=== PATIENT | female | born 1985 ===

== ENCOUNTER 2020-05-07 05:45 | Day surgery (SDC) | payer OTHER ==
[~2020-05-07 05:45] MED LIST: DESCOVY 200-251 EACH PO; TIVICAY50 MG PO
[2020-05-07] MEDS ORDERED: RECTICARE30 GM TOP (09:06)
[2020-05-07] MEDS ORDERED: ULTRAM50 MG PO (09:06)
[2020-05-07] MEDS ORDERED: KETO10TA2 PO (09:06)
== END 2020-05-07 12:50 | disposition home or self-care (01) ==
LOC: CIR.AMB 05:45
PROVIDERS: ATTEND Surgery
DX: D01.3 Carcinoma in situ of anus and anal canal (principal); Z20.828 Contact with and (suspected) exposure to other viral communicable diseases